=== PATIENT | male | born 1965 | race Caucasian/White ===

== ENCOUNTER 2021-02-25 10:01 | Emergency (ER) | payer SELFPAY | END 2021-02-25 10:20 | disposition left against medical advice (07) | LOC: ERS 10:01 | DX: Z53.21 Procedure and treatment not carried out due to patient leaving prior to being seen by health care provider (principal) ==

== ENCOUNTER 2021-02-26 10:01 | Inpatient (IN) | payer BC ==
[2021-02-26] MEDS ORDERED: Enoxaparin Sodium 100 MG/ML SYRINGE ONE ×2 (10:27→10:28)
[2021-02-26] MEDS ORDERED: cefTRIAXone\\ROCEPHIN 1 GM VIAL ONE (10:27)
[2021-02-26] MEDS ORDERED: Dexamethasone 4 mg/ml Vial ONE (10:27)
[2021-02-26] MEDS ORDERED: Azithromycin 500 MG VIAL ONE (10:27)
[2021-02-26] MEDS ORDERED: Aspirin Chewable 81 MG TAB ONE (10:27)
[2021-02-26 11:04] LABS: #Lymphocytes 1.6 thou/uL (1.20-3.40); #Monocytes 0.7 thou/uL (0.11-0.59); #Neutrophils 5.9 thou/uL (1.40-6.50); %Eosinophils 0.1 % (0.0-10.0); %Lymphocytes 19.3 % (21.0-51.0); %Monocytes 8.1 % (0.0-10.0); %Neutrophils 72.5 % (42.0-75.0); Hemoglobin 13.1 g/dL (14.0-18.0); Mean Corpuscular HGB CONC 35.7 g/dL (32.0-36.0); Mean Corpuscular Hemoglobin 33.1 pg (27.0-31.0); Mean Corpuscular Volume 92.7 fL (78.0-98.0); Mean Platelet Volume 7.7 fL (7.4-10.4); Platelet Count 202 thou/uL (130-400); RBC Distribution Width 11.3 % (11.5-14.5); Red Blood Cell (RBC) Count 3.97 mill/uL (4.70-6.10); White Blood Cell (WBC) Count 8.2 thou/uL (4.8-10.8)
[2021-02-26 11:34] LABS: ALT (SGPT) 49 U/L (8-55); AST (SGOT) 52 U/L (5-34); Albumin 3.5 g/dL (3.5-5.0); Alkaline Phosphatase 58 U/L (40-110); Anion Gap 15 mmol/L (10-20); BUN (Urea Nitrogen) 14 mg/dL (8.4-25.7); Bilirubin, Total 0.7 mg/dL (0.2-1.2); CK (CPK) 197 U/L (30-200); Calc. Creatinine Clearance 0 mL/min (70-130); Carbon Dioxide 25 mmol/L (22-29); Chloride 99 mmol/L (98-107); Globulin 3.2 g/dL (2.4-3.5); Glucose 135 mg/dL (70-105); Lipase 54 U/L (8-78); Potassium 3.8 mmol/L (3.5-5.1); Protein, Total 6.7 g/dL (6.0-8.3); Sodium 135 mmol/L (136-145)
[2021-02-26] MEDS ORDERED: Acetaminophen 650 MG Suppository PR PRN (12:09)
[2021-02-26] MEDS ORDERED: Loperamide HCl 2 MG CAP PO PRN ×2 (12:09)
[2021-02-26] MEDS ORDERED: Acetaminophen 325 MG TAB PO PRN (12:09)
[2021-02-26] MEDS ORDERED: Ondansetron ODT 4 MG TAB PO PRN (12:09)
[2021-02-26] MEDS ORDERED: Ondansetron PF 4 MG/2 ML Vial IVP PRN (12:09)
[2021-02-26] MEDS ORDERED: Azithromycin 500 MG in Sodium Chloride 0.9% 250 ML 250 ML IVPB SCH (12:15)
[2021-02-26] MEDS ORDERED: Albuterol 200 PUFF (6.7GM INHALER) INH PRN ×2 (12:34→13:27)
[2021-02-26] MEDS: cefTRIAXone\\ROCEPHIN 1 GM in Sodium Chloride 0.9% 100 ML IVPB SCH (13:51)
[2021-02-26] MEDS: Azithromycin 500 MG in Sodium Chloride 0.9% 250 ML 250 ML IVPB SCH (13:54)
[2021-02-26 14:36] LABS: Troponin I Less than 0.010 ng/mL (< 0.028)
[2021-02-26 17:04] VITALS: BMI 30.4
[2021-02-26 17:33] LABS: Troponin I Less than 0.010 ng/mL (< 0.028)
[2021-02-26] MEDS: Guaifenesin DM 100-10/5 ML UDCUP PO PRN (20:21)
[2021-02-27 07:48] LABS: #Lymphocytes 1.6 thou/uL (1.20-3.40); #Monocytes 0.7 thou/uL (0.11-0.59); #Neutrophils 5.1 thou/uL (1.40-6.50); %Eosinophils 0.1 % (0.0-10.0); %Lymphocytes 21.8 % (21.0-51.0); %Monocytes 9.7 % (0.0-10.0); %Neutrophils 68.4 % (42.0-75.0); Mean Corpuscular HGB CONC 32.2 g/dL (32.0-36.0); Mean Corpuscular Hemoglobin 30.1 pg (27.0-31.0); Mean Corpuscular Volume 93.5 fL (78.0-98.0); Mean Platelet Volume 7.7 fL (7.4-10.4); Platelet Count 249 thou/uL (130-400); RBC Distribution Width 11.5 % (11.5-14.5); Red Blood Cell (RBC) Count 4.65 mill/uL (4.70-6.10); White Blood Cell (WBC) Count 7.4 thou/uL (4.8-10.8)
[2021-02-27] MEDS ORDERED: Dexamethasone 4 MG TAB PO SCH (08:00)
[2021-02-27 08:04] LABS: Anion Gap 14 mmol/L (10-20); BUN (Urea Nitrogen) 17 mg/dL (8.4-25.7); Calc. Creatinine Clearance 155 mL/min (70-130); Calcium 9.3 mg/dL (7.8-10.44); Carbon Dioxide 26 mmol/L (22-29); Chloride 102 mmol/L (98-107); Glucose 166 mg/dL (70-105); Potassium 4.2 mmol/L (3.5-5.1); Sodium 138 mmol/L (136-145)
[2021-02-27] MEDS: Enoxaparin Sodium 40 MG/0.4 ML SYRINGE SC SCH (09:18)
[2021-02-27] MEDS: Ascorbic Acid 500 mg Chewable Tablet PO SCH (09:18)
[2021-02-27] MEDS: cefTRIAXone\\ROCEPHIN 1 GM in Sodium Chloride 0.9% 100 ML IVPB SCH (09:19)
[2021-02-27] MEDS: Zinc Sulfate 220 MG CAP PO SCH (09:19)
[2021-02-27] MEDS: Azithromycin 500 MG in Sodium Chloride 0.9% 250 ML 250 ML IVPB SCH (12:13)
[2021-02-27] MEDS: Guaifenesin DM 100-10/5 ML UDCUP PO PRN (20:07)
[2021-02-28 06:08] LABS: #Basophils 0.1 thou/uL (0.0-0.2); #Lymphocytes 1.4 thou/uL (1.20-3.40); #Monocytes 0.9 thou/uL (0.11-0.59); #Neutrophils 6.2 thou/uL (1.40-6.50); %Lymphocytes 15.9 % (21.0-51.0); Hemoglobin 13.1 g/dL (14.0-18.0); Mean Corpuscular HGB CONC 33.5 g/dL (32.0-36.0); Mean Corpuscular Hemoglobin 31.2 pg (27.0-31.0); Mean Corpuscular Volume 93.2 fL (78.0-98.0); Mean Platelet Volume 7.6 fL (7.4-10.4); Platelet Count 259 thou/uL (130-400); RBC Distribution Width 11.5 % (11.5-14.5); Red Blood Cell (RBC) Count 4.21 mill/uL (4.70-6.10); White Blood Cell (WBC) Count 8.5 thou/uL (4.8-10.8)
[2021-02-28 06:28] LABS: Anion Gap 14 mmol/L (10-20); BUN (Urea Nitrogen) 18 mg/dL (8.4-25.7); Calc. Creatinine Clearance 169 mL/min (70-130); Calcium 8.7 mg/dL (7.8-10.44); Carbon Dioxide 25 mmol/L (22-29); Chloride 102 mmol/L (98-107); Glucose 148 mg/dL (70-105); Sodium 137 mmol/L (136-145)
[2021-02-28] MEDS: Aspirin 81 mg Enteric Coated Tablet PO SCH (09:00)
[2021-02-28] MEDS: Enoxaparin Sodium 40 MG/0.4 ML SYRINGE SC SCH (09:00)
[2021-02-28] MEDS: Zinc Sulfate 220 MG CAP PO SCH (09:00)
[2021-02-28] MEDS: Ascorbic Acid 500 mg Chewable Tablet PO SCH (09:00)
[2021-02-28] MEDS: Dexamethasone 4 mg/ml Vial SLOW IVP SCH (09:00)
[2021-02-28] MEDS: Guaifenesin DM 100-10/5 ML UDCUP PO PRN ×2 (09:00→20:31)
[2021-02-28] MEDS: Azithromycin 500 MG in Sodium Chloride 0.9% 250 ML 250 ML IVPB SCH (11:05)
[2021-02-28] MEDS ORDERED: Benzonatate 100 MG CAP PO PRN (15:09)
[2021-02-28] MEDS ORDERED: Furosemide 40 MG/4 ML VIAL SLOW IVP SCH (15:30)
[2021-02-28] MEDS: cefTRIAXone\\ROCEPHIN 1 GM in Sodium Chloride 0.9% 100 ML IVPB SCH (16:21)
[2021-02-28] MEDS: Albuterol 200 PUFF (6.7GM INHALER) INH SCH (17:46)
[2021-02-28] MEDS: Benzonatate 100 MG CAP PO SCH (20:32)
[2021-03-01 06:23] LABS: #Monocytes 0.9 thou/uL (0.11-0.59); #Neutrophils 6.3 thou/uL (1.40-6.50); %Basophils 0.2 % (0.0-1.0); %Eosinophils 0.3 % (0.0-10.0); %Lymphocytes 21.2 % (21.0-51.0); %Monocytes 9.7 % (0.0-10.0); %Neutrophils 68.7 % (42.0-75.0); Hemoglobin 13.7 g/dL (14.0-18.0); Mean Corpuscular HGB CONC 35.9 g/dL (32.0-36.0); Mean Corpuscular Hemoglobin 33.3 pg (27.0-31.0); Mean Corpuscular Volume 92.5 fL (78.0-98.0); Mean Platelet Volume 7.4 fL (7.4-10.4); Platelet Count 250 thou/uL (130-400); RBC Distribution Width 11.3 % (11.5-14.5); Red Blood Cell (RBC) Count 4.11 mill/uL (4.70-6.10); White Blood Cell (WBC) Count 9.2 thou/uL (4.8-10.8)
[2021-03-01 06:40] LABS: Anion Gap 15 mmol/L (10-20); BUN (Urea Nitrogen) 17 mg/dL (8.4-25.7); Calc. Creatinine Clearance 161 mL/min (70-130); Calcium 8.4 mg/dL (7.8-10.44); Carbon Dioxide 26 mmol/L (22-29); Chloride 101 mmol/L (98-107); Glucose 130 mg/dL (70-105); Potassium 3.5 mmol/L (3.5-5.1); Sodium 138 mmol/L (136-145)
[2021-03-01] MEDS: Albuterol 200 PUFF (6.7GM INHALER) INH SCH ×6 (07:16→22:40)
[2021-03-01] MEDS: Dexamethasone 4 mg/ml Vial SLOW IVP SCH ×2 (08:09→20:47)
[2021-03-01] MEDS: Aspirin 81 mg Enteric Coated Tablet PO SCH (08:09)
[2021-03-01] MEDS: Ascorbic Acid 500 mg Chewable Tablet PO SCH (08:09)
[2021-03-01] MEDS: Furosemide 40 MG/4 ML VIAL SLOW IVP SCH (08:09)
[2021-03-01] MEDS: Enoxaparin Sodium 40 MG/0.4 ML SYRINGE SC SCH (08:09)
[2021-03-01] MEDS: Zinc Sulfate 220 MG CAP PO SCH (08:10)
[2021-03-01] MEDS: Benzonatate 100 MG CAP PO SCH ×3 (08:10→20:46)
[2021-03-01] MEDS: Azithromycin 500 MG in Sodium Chloride 0.9% 250 ML 250 ML IVPB SCH (09:43)
[2021-03-01] MEDS ORDERED: Iopamidol-370 76% 500 ML 1 ML ONE (10:11)
[2021-03-01] MEDS: cefTRIAXone\\ROCEPHIN 1 GM in Sodium Chloride 0.9% 100 ML IVPB SCH (14:23)
[2021-03-01] MEDS: Enoxaparin Sodium 80 MG/0.8 ML SYRINGE SC SCH (20:51)
[2021-03-02] MEDS: Albuterol 200 PUFF (6.7GM INHALER) INH SCH ×6 (01:56→22:01)
[2021-03-02 06:07] LABS: #Lymphocytes 1.4 thou/uL (1.20-3.40); #Monocytes 0.5 thou/uL (0.11-0.59); #Neutrophils 6.1 thou/uL (1.40-6.50); %Eosinophils 0.2 % (0.0-10.0); %Lymphocytes 17.2 % (21.0-51.0); %Monocytes 6.8 % (0.0-10.0); %Neutrophils 75.8 % (42.0-75.0); Hemoglobin 13.9 g/dL (14.0-18.0); Mean Corpuscular HGB CONC 35.7 g/dL (32.0-36.0); Mean Corpuscular Hemoglobin 33.1 pg (27.0-31.0); Mean Corpuscular Volume 92.7 fL (78.0-98.0); Mean Platelet Volume 7.5 fL (7.4-10.4); Platelet Count 285 thou/uL (130-400); RBC Distribution Width 11.6 % (11.5-14.5); Red Blood Cell (RBC) Count 4.21 mill/uL (4.70-6.10)
[2021-03-02 06:34] LABS: Anion Gap 14 mmol/L (10-20); BUN (Urea Nitrogen) 16 mg/dL (8.4-25.7); Calc. Creatinine Clearance 161 mL/min (70-130); Carbon Dioxide 25 mmol/L (22-29); Chloride 100 mmol/L (98-107); Glucose 267 mg/dL (70-105); Potassium 4.2 mmol/L (3.5-5.1); Sodium 135 mmol/L (136-145)
[2021-03-02] MEDS: Zinc Sulfate 220 MG CAP PO SCH (07:55)
[2021-03-02] MEDS: Benzonatate 100 MG CAP PO SCH ×3 (07:55→21:37)
[2021-03-02] MEDS: Dexamethasone 4 mg/ml Vial SLOW IVP SCH ×2 (07:55→21:37)
[2021-03-02] MEDS: Ascorbic Acid 500 mg Chewable Tablet PO SCH (07:55)
[2021-03-02] MEDS: Aspirin 81 mg Enteric Coated Tablet PO SCH (07:55)
[2021-03-02] MEDS: Enoxaparin Sodium 80 MG/0.8 ML SYRINGE SC SCH (07:56)
[2021-03-02] MEDS: Furosemide 40 MG/4 ML VIAL SLOW IVP SCH (07:56)
[2021-03-02] MEDS ORDERED: Azithromycin 250 MG TAB PO SCH (09:00)
[2021-03-02] MEDS: cefTRIAXone\\ROCEPHIN 1 GM in Sodium Chloride 0.9% 100 ML IVPB SCH (14:46)
[2021-03-02 18:07] LABS: SARS-CoV-2 IgG Ab Reactive (NonReactive); SARS-CoV-2 IgG Index 5.59 S/CO (< 1.40)
[2021-03-02] MEDS: Apixaban 5 MG TAB PO SCH (21:37)
[2021-03-03] MEDS: Albuterol 200 PUFF (6.7GM INHALER) INH SCH ×6 (02:38→22:06)
[2021-03-03 08:04] LABS: #Neutrophils 8.2 thou/uL (1.40-6.50); %Basophils 0.3 % (0.0-1.0); %Eosinophils 0.3 % (0.0-10.0); %Lymphocytes 13.2 % (21.0-51.0); %Monocytes 6.3 % (0.0-10.0); Hemoglobin 14.3 g/dL (14.0-18.0); Mean Corpuscular HGB CONC 34.7 g/dL (32.0-36.0); Mean Corpuscular Hemoglobin 32.3 pg (27.0-31.0); Mean Corpuscular Volume 93.1 fL (78.0-98.0); Mean Platelet Volume 7.6 fL (7.4-10.4); Platelet Count 311 thou/uL (130-400); RBC Distribution Width 11.5 % (11.5-14.5); Red Blood Cell (RBC) Count 4.42 mill/uL (4.70-6.10); White Blood Cell (WBC) Count 10.3 thou/uL (4.8-10.8)
[2021-03-03 08:05] LABS: #Lymphocytes 1.4 thou/uL (1.20-3.40); #Monocytes 0.7 thou/uL (0.11-0.59)
[2021-03-03] MEDS: Benzonatate 100 MG CAP PO SCH ×3 (08:20→22:02)
[2021-03-03] MEDS: Ascorbic Acid 500 mg Chewable Tablet PO SCH (08:20)
[2021-03-03 08:21] LABS: Anion Gap 15 mmol/L (10-20); BUN (Urea Nitrogen) 17 mg/dL (8.4-25.7); Calc. Creatinine Clearance 157 mL/min (70-130); Calcium 8.8 mg/dL (7.8-10.44); Carbon Dioxide 22 mmol/L (22-29); Chloride 100 mmol/L (98-107); Glucose 277 mg/dL (70-105); Potassium 4.2 mmol/L (3.5-5.1); Sodium 133 mmol/L (136-145)
[2021-03-03] MEDS: Zinc Sulfate 220 MG CAP PO SCH (08:21)
[2021-03-03] MEDS: Apixaban 5 MG TAB PO SCH ×2 (08:21→22:01)
[2021-03-03] MEDS: Dexamethasone 4 mg/ml Vial SLOW IVP SCH ×2 (08:21→09:11)
[2021-03-03] MEDS: Aspirin 81 mg Enteric Coated Tablet PO SCH (08:21)
[2021-03-03] MEDS ORDERED: Amlodipine 10 MG TAB PO SCH (08:30)
[2021-03-03] MEDS ORDERED: Furosemide 20 MG TAB PO SCH (09:00)
[2021-03-03] MEDS: Amlodipine 5 MG TAB PO SCH ×2 (11:33→22:02)
[2021-03-03] MEDS: Ivermectin 3 MG TAB PO SCH (14:07)
[2021-03-03] MEDS: Colchicine 0.6 MG TAB PO SCH (22:01)
[2021-03-03] MEDS: Cholecalciferol 1,000 UNITS (25 MCG) TAB PO SCH (22:05)
[2021-03-04] MEDS: Albuterol 200 PUFF (6.7GM INHALER) INH SCH ×5 (03:10→18:09)
[2021-03-04] MEDS: Amlodipine 5 MG TAB PO SCH ×2 (08:27→20:23)
[2021-03-04] MEDS: Ascorbic Acid 500 mg Chewable Tablet PO SCH (08:27)
[2021-03-04] MEDS: Colchicine 0.6 MG TAB PO SCH ×2 (08:27→20:24)
[2021-03-04] MEDS: Apixaban 5 MG TAB PO SCH ×2 (08:27→20:23)
[2021-03-04] MEDS: Aspirin 81 mg Enteric Coated Tablet PO SCH (08:27)
[2021-03-04] MEDS: Benzonatate 100 MG CAP PO SCH ×3 (08:28→20:23)
[2021-03-04] MEDS: Dexamethasone 4 mg/ml Vial SLOW IVP SCH (08:28)
[2021-03-04] MEDS: Zinc Sulfate 220 MG CAP PO SCH (08:28)
[2021-03-04] MEDS: Ivermectin 3 MG TAB PO SCH (12:42)
[2021-03-04] MEDS: Cholecalciferol 1,000 UNITS (25 MCG) TAB PO SCH (20:22)
[2021-03-05] MEDS: Albuterol 200 PUFF (6.7GM INHALER) INH SCH ×6 (00:04→22:31)
[2021-03-05] MEDS: Aspirin 81 mg Enteric Coated Tablet PO SCH (08:02)
[2021-03-05] MEDS: Ascorbic Acid 500 mg Chewable Tablet PO SCH (08:02)
[2021-03-05] MEDS: Apixaban 5 MG TAB PO SCH ×2 (08:02→20:48)
[2021-03-05] MEDS: Benzonatate 100 MG CAP PO SCH ×3 (08:02→20:48)
[2021-03-05] MEDS: Zinc Sulfate 220 MG CAP PO SCH (08:02)
[2021-03-05] MEDS: Colchicine 0.6 MG TAB PO SCH ×2 (08:03→20:48)
[2021-03-05] MEDS: Dexamethasone 4 mg/ml Vial SLOW IVP SCH (08:03)
[2021-03-05] MEDS: Amlodipine 5 MG TAB PO SCH ×2 (08:03→20:50)
[2021-03-05] MEDS: Ivermectin 3 MG TAB PO SCH (13:19)
[2021-03-05] MEDS: Cholecalciferol 1,000 UNITS (25 MCG) TAB PO SCH (20:48)
[2021-03-06] MEDS: Albuterol 200 PUFF (6.7GM INHALER) INH SCH ×3 (01:59→12:16)
[2021-03-06] MEDS: Benzonatate 100 MG CAP PO SCH (09:24)
[2021-03-06] MEDS: Zinc Sulfate 220 MG CAP PO SCH (09:24)
[2021-03-06] MEDS: Colchicine 0.6 MG TAB PO SCH (09:24)
[2021-03-06] MEDS: Ascorbic Acid 500 mg Chewable Tablet PO SCH (09:24)
[2021-03-06] MEDS: Aspirin 81 mg Enteric Coated Tablet PO SCH (09:24)
[2021-03-06] MEDS: Amlodipine 5 MG TAB PO SCH (09:24)
[2021-03-06] MEDS: Apixaban 5 MG TAB PO SCH (09:24)
[2021-03-06] MEDS: Dexamethasone 4 mg/ml Vial SLOW IVP SCH (09:25)
[2021-03-06 16:44] VITALS: TEMP 97.6
[2021-03-06 17:03] VITALS: BP 120/76
== END 2021-03-06 15:38 | disposition home or self-care (01) | DRG 177 ==
LOC: ERS 10:01 → ERHOLD 12:09 → T4-A 16:53
PROVIDERS: ADMIT Internal Medicine; ATTEND Internal Medicine
PROC: 8E0ZXY6 Isolation (ICD-10-PCS; principal; 2021-02-26)
PROC: 5A0945A Assistance with Respiratory Ventilation, 24-96 Consecutive Hours, High Flow/Velocity Cannula (ICD-10-PCS; 2021-02-28)
DX: U07.1 COVID-19 (principal); J12.82 Pneumonia due to coronavirus disease 2019; J96.01 Acute respiratory failure with hypoxia; J15.9 Unspecified bacterial pneumonia; I26.99 Other pulmonary embolism without acute cor pulmonale; E78.5 Hyperlipidemia, unspecified; F41.9 Anxiety disorder, unspecified; R74.01 Elevation of levels of liver transaminase levels
CPT/HCPCS: 36415; 71045; 71275; 80048; 80053; 82550; 82728; 83690; 83880; 84484; 85025; 85379; 85652; 86140; 86769; 93005; 96365; 96366; 96367; 96372; 96375; J0456; J0696; J1100; J1650; J1940; J3490; J7050; J8540; Q9967

== ENCOUNTER 2024-12-26 08:53 | Outpatient (CLI) | payer BC | END 2024-12-26 08:54 | disposition home or self-care (01) | LOC: BICCT 08:53 | PROVIDERS: ATTEND Internal Medicine Cardiovascular Disease | DX: R91.1 Solitary pulmonary nodule (principal) | CPT/HCPCS: 71250 ==